=== PATIENT | female | born 1995 | race Caucasian/White ===

== ENCOUNTER 2017-03-02 10:23 | Emergency (ER) | payer OTHER ==
[~2017-03-02] VITALS: Ht 172.7 cm; Wt 64.5 kg
[~2017-03-02 10:23] MED LIST: DOXYCYCLINE 10100 MG PO; FLEXERIL 1010 MG/TAB PO; METROGEL-VAGINA0.75% VG; NORCO 325 MG-51 TAB PO; PEPCID 20MG TAB20 MG PO; TYLENOL 325MG325 MG PO; ZITHROMAX500 M2 PO; ZOFRAN 4MG T4 MG/TAB PO
[2017-03-02 10:26] VITALS: BP 139/79; PULSE 95; TEMP 98.8
[2017-03-02 11:30] LABS: COLLECTION METHOD CLEAN CATCH
[2017-03-02 11:44] LABS: PH 8 (5-8); SQUAMOUS EPITHELIAL 0-2 /hpf; URINE APPEARANCE Clear; URINE BACTERIA None Seen /hpf; URINE BILIRUBIN Negative (NEGATIVE); URINE BLOOD Negative (NEGATIVE); URINE COLOR Yellow; URINE GLUCOSE Negative (NEGATIVE); URINE KETONE Negative (NEGATIVE); URINE LEUKOCYTE ESTERASE Negative (NEGATIVE); URINE PROTEIN(semi-quant) Negative (NEGATIVE); URINE RBC 0-2 /hpf; URINE UROBILINOGEN Negative (NEGATIVE); URINE WBC 0-2 /hpf
[2017-03-02] MEDS ORDERED: NAPROXEN 3375 MG/TAB PO (13:54)
[2017-03-02] MEDS ORDERED: FLEXERIL 1010 MG/TAB PO (13:54)
[2017-03-02] MEDS ORDERED: NORCO 325 MG-51 TAB PO (13:54)
== END 2017-03-02 14:30 | disposition home or self-care (01) ==
LOC: COL.ER 10:23
PROVIDERS: Emergency Medicine
DX: M54.16 Radiculopathy, lumbar region (principal); F17.210 Nicotine dependence, cigarettes, uncomplicated; Z32.02 Encounter for pregnancy test, result negative; V89.2XXA Person injured in unspecified motor-vehicle accident, traffic, initial encounter